=== PATIENT | female | born 2000 ===

== ENCOUNTER 2024-01-11 13:00 | Inpatient (IN) | payer OTHER ==
[~2024-01-11] VITALS: Ht 162.6 cm; Wt 76.2 kg
[2024-01-19] MEDS ORDERED: RINGERS SOLUTION,LACTATED 1,000 ML IV SCH (11:45)
[2024-01-19] MEDS ORDERED: PRENATABS RX T1 EACH PO (11:46)
[2024-01-19] MEDS ORDERED: OXYTOCIN 500 ML IV ONE (12:45)
[2024-01-19 12:53] LABS: HEMATOCRIT 40.6 % (36.0-45.00); HEMOGLOBIN 14.1 g/dL (12.0-15.00); MEAN CELL VOLUME 90.4 fL (80.00-100.00); MEAN CORPUSCULAR HEMOGLOBIN 31.5 pg (27.00-32.0); MEAN CORPUSCULAR HGB CONC 34.8 g/dl (32.0-36.0); PLATELET COUNT 176 K/uL (150-450); RED BLOOD COUNT 4.49 M/uL (4.00-6.00); RED CELL DISTRIBUTION WIDTH 12.7 % (11.5-14.5)
[2024-01-19 13:08] LABS: INR 0.94; PARTIAL THROMBOPLASTIN TIME 28.4 SECONDS (22.0-34.0); PROTHROMBIN TIME 9.9 SECONDS (9.0-11.5)
[2024-01-19 13:10] LABS: ALBUMIN 3.3 gm/dL (3.4-5.0); BILIRUBIN TOTAL 0.36 mg/dL (0.3-1.2); CALCIUM 9.1 mg/dL (8.5-10.1); CREATININE SERUM 0.41 mg/dL (0.55-1.02); GFR 189.02; GLOBULINA 3.8 G/DL (2.4-3.5); POTASSIUM 4.21 mEq/L (3.5-5.1); TOTAL PROTEIN 7.1 gm/dL (6.4-8.2)
[2024-01-19] MEDS ORDERED: PROMETHAZINE HCL 25 MG/ML AMPUL ONE (13:58)
[2024-01-19] MEDS ORDERED: MEPERIDINE HCL/PF 50 MG/ML VIAL IV PRN (14:30)
[2024-01-19] MEDS ORDERED: PROMETHAZINE HCL 25 MG/ML AMPUL IV PRN (14:30)
[2024-01-19] MEDS ORDERED: ERYTHROMYCIN BASE 1 GM TUBE OP ONE (16:15)
[2024-01-19] MEDS ORDERED: CHLORHEXIDINE GLUCONATE 120 ML BOTTLE TOP ONE (16:15)
[2024-01-19] MEDS ORDERED: OXYTOCIN 20 UNITS/1000ML RL PIGGYBAG IV ONE (16:15)
[2024-01-19] MEDS ORDERED: LIDOCAINE HCL 1% 10ML VIAL ONE (16:15)
[2024-01-19] MEDS ORDERED: ACETAMINOPHEN 325 MG TABLET PO PRN (19:30)
[2024-01-19] MEDS ORDERED: OXYTOCIN 20 UNITS/1000ML RL PIGGYBAG IV NR (19:30)
[2024-01-19] MEDS ORDERED: CHLORHEXIDINE GLUCONATE 120 ML BOTTLE TOP NR (19:30)
[2024-01-19] MEDS ORDERED: LIDOCAINE HCL 1% 2ML VIAL IJ NR (19:30)
[2024-01-19] MEDS ORDERED: OxyCODONE HCL/APAP UD (PERCOCET) PO PRN (19:30)
[2024-01-19] MEDS ORDERED: ERYTHROMYCIN BASE 1 GM TUBE OP NR (19:30)
[2024-01-20 02:25] LABS: HEMATOCRIT 37.1 % (36.0-45.00); MEAN CELL VOLUME 90.3 fL (80.00-100.00); MEAN CORPUSCULAR HEMOGLOBIN 31.7 pg (27.00-32.0); MEAN CORPUSCULAR HGB CONC 35.1 g/dl (32.0-36.0); PLATELET COUNT 173 K/uL (150-450); RED BLOOD COUNT 4.11 M/uL (4.00-6.00); RED CELL DISTRIBUTION WIDTH 12.3 % (11.5-14.5)
[2024-01-20] MEDS ORDERED: BENZOCAINE/MENTHOL 90 ML BOTTLE TOP SCH (09:00)
[2024-01-20] MEDS ORDERED: HYDROCORTISONE 2.5% 30 GM TUBE RECTAL SCH (09:00)
== END 2024-01-21 15:43 | disposition home or self-care (01) | DRG 807 ==
LOC: OB/GYN 01-19 11:22 → LDR 01-19 11:22 → NICU 01-19 21:14 → LDR 01-19 21:57 → OB/GYN 01-20 05:13
PROVIDERS: ADMIT Specialist; ATTEND Specialist
PROC: 10E0XZZ Delivery of Products of Conception, External Approach (ICD-10-PCS; principal; 2024-01-19)
PROC: 0W8NXZZ Division of Female Perineum, External Approach (ICD-10-PCS; 2024-01-19)
PROC: 4A1HXCZ Monitoring of Products of Conception, Cardiac Rate, External Approach (ICD-10-PCS; 2024-01-19)
DX: O80 Encounter for full-term uncomplicated delivery (principal); Z37.0 Single live birth; Z3A.39 39 weeks gestation of pregnancy; Z20.822 Contact with and (suspected) exposure to COVID-19